=== PATIENT | male | born 1980 | race African-American/Black ===

== ENCOUNTER 2018-12-10 22:28 | Inpatient (IN) ==
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
[2018-12-10] MEDS ORDERED: HYDROmorphone PF Inj 1 MG/ML Ampul IV.PUSH PRN (23:23)
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
[2018-12-11] MEDS ORDERED: HYDROmorphone PF Inj 1 MG/ML Ampul IV.PUSH PRN (06:49)
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
[2018-12-11] MEDS: Methocarbamol 500 MG Tablet PO SCH ×3 (09:04→22:24)
[2018-12-11] MEDS: Docusate Sodium 100 MG Capsule PO SCH ×2 (09:04→22:24)
[2018-12-11] MEDS: Lidocaine 5% Patch T-DERMAL SCH (09:07)
[2018-12-11 11:15] LABS: Baso % (Auto) 0.6 % (0.0-2.0); Eos # (Auto) 0.1 th/mm3 (0.0-0.4); Eos % (Auto) 1.4 % (0.0-4.0); Hematocrit 43.9 % (39.0-51.0); Hemoglobin 14.9 gm/dL (13.0-17.0); Lymph # (Auto) 1.8 th/mm3 (1.0-4.8); Lymph % (Auto) 24.8 % (9.0-44.0); Mean Corpuscular Hemoglobin 31.1 pg (27.0-34.0); Mean Corpuscular Volume 91.4 fL (80.0-100.0); Mean Platelet Volume 9.4 fL (7.0-11.0); Mono # (Auto) 0.6 th/mm3 (0.0-0.9); Mono % (Auto) 8.2 % (0.0-8.0); Neut # (Auto) 4.6 th/mm3 (1.8-7.7); Platelet Count 176 th/mm3 (150-450); Red Cell Distribution Width 14.1 % (11.6-17.2); White Blood Count 7.1 th/mm3 (4.0-11.0)
[2018-12-11 11:52] LABS: Albumin 3.8 g/dL (3.4-5.0); Anion Gap 5 meq/L (5-15); Aspartate Aminotransferase 93 U/L (15-37); Calcium 8.9 mg/dL (8.5-10.1); Carbon Dioxide 30.5 meq/L (21.0-32.0); Chloride 103 meq/L (98-107); Glomerular Filtration Rate 66 mL/min (>89); Glucose,Random 84 mg/dL (74-106); Potassium 3.7 meq/L (3.5-5.1); Sodium 138 meq/L (136-145)
[2018-12-11 11:56] LABS: Alanine Aminotransferase 109 U/L (12-78); Alkaline Phosphatase 56 U/L (45-117); Blood Urea Nitrogen 16 mg/dL (7-18); Total Protein 8.1 g/dL (6.4-8.2)
[2018-12-11] MEDS: Enoxaparin Inj 30 MG/0.3 ML Syringe SQ SCH (22:24)
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
[2018-12-12] MEDS: Methocarbamol 500 MG Tablet PO SCH ×2 (05:28→13:07)
[2018-12-12 05:54] LABS: Alanine Aminotransferase 83 U/L (12-78); Alkaline Phosphatase 52 U/L (45-117); Total Protein 7.5 g/dL (6.4-8.2)
[2018-12-12 06:02] LABS: Albumin 3.4 g/dL (3.4-5.0); Anion Gap 7 meq/L (5-15); Aspartate Aminotransferase 63 U/L (15-37); Blood Urea Nitrogen 17 mg/dL (7-18); Calcium 8.6 mg/dL (8.5-10.1); Carbon Dioxide 28.3 meq/L (21.0-32.0); Chloride 104 meq/L (98-107); Glomerular Filtration Rate 84 mL/min (>89); Glucose,Random 102 mg/dL (74-106); Potassium 4.3 meq/L (3.5-5.1); Sodium 139 meq/L (136-145)
[2018-12-12 10:30] VITALS: BP 139/73; PULSE 78; RESP 20; TEMP 98.3; O2SAT 97
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
[2018-12-12] MEDS: Docusate Sodium 100 MG Capsule PO SCH (13:07)
[2018-12-12] MEDS: Lidocaine 5% Patch T-DERMAL SCH (13:10)
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
[2018-12-12] MEDS: Enoxaparin Inj 30 MG/0.3 ML Syringe SQ SCH (14:47)
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
== END 2018-12-12 17:54 | disposition home or self-care (01) | DRG 184 ==
LOC: NEPE 22:28 → NEDA 22:58 → N06 12-11 00:45
PROVIDERS: ADMIT Surgery; ATTEND Surgery
CPT/HCPCS: 71010; 71045; 71260; 80053; 85025; 94150; 94667; 97162; 99285; J1650; Q9967